=== PATIENT | male | born 1975 | race Caucasian/White ===

== ENCOUNTER 2016-04-21 14:02 | Emergency (ER) | payer SELFPAY ==
--- NOTE | 2016-04-21 14:19 | EDPRACDOC ---
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 POS LOC. C/O head, neck, back, right wrist, right knee, abdo pain, SOB. med hx = none. No blood thinners. Pain Severity: Reports: Moderate Injuries/Pain Location: Reports: head, face, neck, upper extremity (right), chest, abdomen, back, pelvis, lower extremity (right) Reason for Fall: Reports: other (railing gave way) Loss of Consciousness: unsure Modifying Factors: improves with: movement (worse) Associated Symptoms (Fall): Reports: abdominal pain, neck pain, shortness of breath Allergies/Adverse Reactions: Allergies No Known Allergies Allergy (Verified 04/21/16 14:35) Home Medications: Ambulatory Orders Diphenhydramine HCl [Benadryl Allergy] 25 mg PO BID 04/21/16 Ibuprofen Tablet [Motrin] 800 mg PO TID PRN #30 tab 04/21/16 Melatonin/Pyridoxine [Melatonin 5 mg Tablet] 1 tab PO QHS 04/21/16 ED Past Medical History - History Reviewed Yes Nurses notes reviewed and agree except as marked - Patient Medical History Psychological History: Denies: Depression Systemic History: Denies: Cancer - Social Medical History Smoking Status: Former smoker EDM Review of Systems - Review of Systems ROS Negative Except as Marked: Yes All systems reviewed and were negative except as marked Respiratory: Shortness of Breath Gastrointestinal: Pain Musculoskeletal: Arm (right), Ankle (right), Back (upper, lower,), Knee (right) , Leg (right), Neck, Pelvis Integumentary: Other (abrasions on right arm, hand, leg.) - Physical Exam Constitutional: Alert Oriented to: Time, Person, Place Last recorded Vital Signs: Last Vital Signs Temp 97.8 F 04/21/16 14:06 Pulse 68 04/21/16 14:06 Resp 18 04/21/16 14:06 BP 151/76 04/21/16 14:06 Pulse Ox 98 04/21/16 14:06 Oxygen Pulse Oxygen Saturation 98 O2 Device Room Air Oxygen Flow Rate Fraction of Inspired Oxygen ( FIO2) - HEENT Head: Normal Eye Exam: Normal ENT EAC: Normal TMJ: Normal Nose: No Symptoms Reported Neck: Normal - Respiratory/Cardiovascular Respiratory: Normal - CTA Cardiovascular: Normal - GI Tenderness: Diffuse, Moderate. negative: Guarding, Rebound, Rigidity - Musculoskeletal Extremities: Pedal Pulse, Radial Pulse - Integumentary Skin: Other (multiple abrasions on right arm, right leg) - Neurologic Mood Description: Normal Thought: Coherent ED Injury/Fall Exam - Physical Exam Head Injury: no evidence of injury Extremity Exam: other (abrasions right arm and leg) Skin: Normal Other Exam Findings: cap reflill, sensation, motor fxn and pulses intact on all extremities. - Woody Coma Score Best Eye Response ([place]): (4) open spontaneously Best Verbal Response ([place]): (5) oriented Best Motor Response ([place]y): (6) obeys commands [place] Total: 15 - Results 04/21/16 14:26 04/21/16 14:26 - Diagnostic Imaging Head Image interpreted by: Radiologist EXAM: CT HEAD WITHOUT CONTRAST CT CERVICAL SPINE WITHOUT CONTRAST TECHNIQUE: Multidetector CT imaging of the head and cervical spine was performed following the standard protocol without intravenous contrast. Multiplanar CT image reconstructions of the cervical spine were also generated. COMPARISON: None. FINDINGS: CT HEAD FINDINGS The brain demonstrates no evidence of hemorrhage, infarction, edema, mass effect, extra-axial fluid collection, hydrocephalus or mass lesion. No evidence of skull fracture. Mild mucosal thickening is present in bilateral ethmoid air cells. CT CERVICAL SPINE FINDINGS The cervical spine shows normal alignment. There is no evidence of acute fracture or subluxation. No soft tissue swelling or hematoma is identified. There are no significant degenerative changes. No bony or soft tissue lesions are seen. The visualized airway is normally patent. IMPRESSION: 1. No acute findings by head CT. Mild mucosal sinus disease in the ethmoid sinuses. 2. Normal cervical spine CT. Electronically Signed By: Lico Elaine M.D. On: 04/21/2016 15:23 Chest Image interpreted by: Radiologist EXAM: CT CHEST, ABDOMEN, AND PELVIS WITH CONTRAST TECHNIQUE: Multidetector CT imaging of the chest, abdomen and pelvis was performed following the standard protocol during bolus administration of intravenous contrast. CONTRAST: 100 cc Isovue 370 intravenous COMPARISON: None. FINDINGS: CT CHEST FINDINGS THORACIC INLET/BODY WALL: No acute abnormality. MEDIASTINUM: Normal heart size. No pericardial effusion. No acute vascular abnormality. No adenopathy. LUNG WINDOWS: No contusion, hemothorax, or pneumothorax. OSSEOUS: See below CT ABDOMEN AND PELVIS FINDINGS BODY WALL: Unremarkable. Hepatobiliary: No focal liver abnormality. Possible hepatic steatosis.No evidence of biliary obstruction or stone. Pancreas: Unremarkable. Spleen: Unremarkable. Adrenals/Urinary Tract: Negative adrenals. No evidence of renal injury. Unremarkable bladder. Reproductive:No pathologic findings. Stomach/Bowel: No evidence of injury. Appendectomy Vascular/Lymphatic: No acute vascular abnormality. No mass or adenopathy. Peritoneal: No ascites or pneumoperitoneum. Musculoskeletal: Remote and healed left clavicle fracture. Remote posterior left seventh rib fracture with hyper trophic healing. No evidence of acute fracture. IMPRESSION: No acute finding. Electronically Signed By: Juan Manuel Aguilar M.D. On: 04/21/2016 15:30 Knee Image interpreted by: Radiologist EXAM: RIGHT KNEE - COMPLETE 4+ VIEW COMPARISON: None. FINDINGS: There is no evidence of fracture, dislocation, or joint effusion. There is no evidence of arthropathy or other focal bone abnormality. Soft tissues are unremarkable. IMPRESSION: Negative. Electronically Signed By: Lico Elaine M.D. On: 04/21/2016 16:17 Wrist Image interpreted by: Radiologist EXAM: RIGHT WRIST - COMPLETE 3+ VIEW COMPARISON: None. FINDINGS: There is no evidence of fracture or dislocation. There is no evidence of arthropathy or other focal bone abnormality. Soft tissues are unremarkable. IMPRESSION: Negative. Electronically Signed By: Kris Shannon M.D. On: 04/21/2016 16:16 T-Spine Image interpreted by: Radiologist EXAM: THORACIC SPINE 2 VIEWS COMPARISON: None. FINDINGS: There is no evidence of thoracic spine fracture. Alignment is normal. No other significant bone abnormalities are identified. IMPRESSION: Negative. Electronically Signed By: Crispin Watson M.D. On: 04/21/2016 16:32 L-Spine Image interpreted by: Radiologist EXAM: LUMBAR SPINE - COMPLETE 4+ VIEW COMPARISON: CT scan same day FINDINGS: Five views of the lumbar spine submitted. No acute fracture or subluxation. Alignment and vertebral body heights are preserved. There is disc space flattening and vacuum disc phenomenon at L5-S1 level. Contrast material from recent CT scan noted bilateral renal collecting system bilateral ureter and urinary bladder. IMPRESSION: No acute fracture or subluxation. Disc space flattening and vacuum disc phenomenon at L5-S1 level. Electronically Signed By: Dennis Fontenot M.D. On: 04/21/2016 16:33 Decision Time to Discharge: 17:00 - Departure Disposition: Home Condition: Stable Final Diagnosis: Fall Qualifiers: Encounter type: initial encounter Qualified Code(s): W19.XXXA - Unspecified fall, initial encounter Instructions: RICE: Routine Care for Injuries, Fall Prevention (ED) Education/Counseling Given To: Patient Education/Counseling Given Regarding: Diagnosis, Treatment, Prognosis, Follow Up Referrals: None,No Provider [Primary Care Provider] - One Week Prescriptions: Ibuprofen Tablet [Motrin] 800 mg PO TID PRN #30 tab PRN Reason: Pain Additional Instructions: Follow up with primary care. Return to ED for any new or worsening symptoms.
[2016-04-21 14:24] VITALS: TEMP 97.8; BMI 30.3
[2016-04-21] MEDS ORDERED: MORPHINE 4 MG/ML INJECTION IV ONE (14:34)
[2016-04-21] MEDS ORDERED: ONDANSETRON HCL 4 MG/2 ML VIAL IV ONE (14:34)
[2016-04-21 14:39] LABS: AUTOMATED EOSINOPHIL 5.4 % (0-5); AUTOMATED MONOCYTE 6.8 % (3-10); AUTOMATED NEUTROPHIL 51.8 % (45-76)
[2016-04-21 14:51] LABS: BLOOD UREA NITROGEN 21 MG/DL (9-20); CALCIUM 9.5 MG/DL (8.4-10.2); CALCULATED OSMOLALITY 271 MOs/Kg (270-290); CHLORIDE 101 mEq/L (98-107); GLUCOSE 85 MG/DL (70-99); SODIUM LEVEL 140 mEq/L (137-146); TOTAL PROTEIN 7.8 G/DL (6.3-8.2)
[2016-04-21] MEDS ORDERED: Pharmacy Review for Metformin - IV Contrast Given SCH (15:00)
--- NOTE | 2016-04-21 15:26 | DIRPT ---
CLINICAL DATA: Fall through deck with loss of consciousness, headache and neck pain. Initial encounter. EXAM: CT HEAD WITHOUT CONTRAST CT CERVICAL SPINE WITHOUT CONTRAST TECHNIQUE: Multidetector CT imaging of the head and cervical spine was performed following the standard protocol without intravenous contrast. Multiplanar CT image reconstructions of the cervical spine were also generated. COMPARISON: None. FINDINGS: CT HEAD FINDINGS The brain demonstrates no evidence of hemorrhage, infarction, edema, mass effect, extra-axial fluid collection, hydrocephalus or mass lesion. No evidence of skull fracture. Mild mucosal thickening is present in bilateral ethmoid air cells. CT CERVICAL SPINE FINDINGS The cervical spine shows normal alignment. There is no evidence of acute fracture or subluxation. No soft tissue swelling or hematoma is identified. There are no significant degenerative changes. No bony or soft tissue lesions are seen. The visualized airway is normally patent. IMPRESSION: 1. No acute findings by head CT. Mild mucosal sinus disease in the ethmoid sinuses. 2. Normal cervical spine CT. Electronically Signed By: Lico Elaine M.D. On: 04/21/2016 15:23
--- NOTE | 2016-04-21 15:32 | DIRPT ---
CLINICAL DATA: Fall through deck with loss of consciousness. Initial encounter. EXAM: CT CHEST, ABDOMEN, AND PELVIS WITH CONTRAST TECHNIQUE: Multidetector CT imaging of the chest, abdomen and pelvis was performed following the standard protocol during bolus administration of intravenous contrast. CONTRAST: 100 cc Isovue 370 intravenous COMPARISON: None. FINDINGS: CT CHEST FINDINGS THORACIC INLET/BODY WALL: No acute abnormality. MEDIASTINUM: Normal heart size. No pericardial effusion. No acute vascular abnormality. No adenopathy. LUNG WINDOWS: No contusion, hemothorax, or pneumothorax. OSSEOUS: See below CT ABDOMEN AND PELVIS FINDINGS BODY WALL: Unremarkable. Hepatobiliary: No focal liver abnormality. Possible hepatic steatosis.No evidence of biliary obstruction or stone. Pancreas: Unremarkable. Spleen: Unremarkable. Adrenals/Urinary Tract: Negative adrenals. No evidence of renal injury. Unremarkable bladder. Reproductive:No pathologic findings. Stomach/Bowel: No evidence of injury. Appendectomy Vascular/Lymphatic: No acute vascular abnormality. No mass or adenopathy. Peritoneal: No ascites or pneumoperitoneum. Musculoskeletal: Remote and healed left clavicle fracture. Remote posterior left seventh rib fracture with hyper trophic healing. No evidence of acute fracture. IMPRESSION: No acute finding. Electronically Signed By: Juan Manuel Aguilar M.D. On: 04/21/2016 15:30
--- NOTE | 2016-04-21 16:19 | DIRPT ---
CLINICAL DATA: Fall from a deck today. Wrist pain. EXAM: RIGHT WRIST - COMPLETE 3+ VIEW COMPARISON: None. FINDINGS: There is no evidence of fracture or dislocation. There is no evidence of arthropathy or other focal bone abnormality. Soft tissues are unremarkable. IMPRESSION: Negative. Electronically Signed By: Kris Shannon M.D. On: 04/21/2016 16:16
--- NOTE | 2016-04-21 16:20 | DIRPT ---
CLINICAL DATA: Fall off neck today. Right knee pain. Initial encounter. EXAM: RIGHT KNEE - COMPLETE 4+ VIEW COMPARISON: None. FINDINGS: There is no evidence of fracture, dislocation, or joint effusion. There is no evidence of arthropathy or other focal bone abnormality. Soft tissues are unremarkable. IMPRESSION: Negative. Electronically Signed By: Lico Elaine M.D. On: 04/21/2016 16:17
--- NOTE | 2016-04-21 16:35 | DIRPT ---
CLINICAL DATA: 3-4 ft fall off a deck today. EXAM: THORACIC SPINE 2 VIEWS COMPARISON: None. FINDINGS: There is no evidence of thoracic spine fracture. Alignment is normal. No other significant bone abnormalities are identified. IMPRESSION: Negative. Electronically Signed By: Crispin Watson M.D. On: 04/21/2016 16:32
--- NOTE | 2016-04-21 16:36 | DIRPT ---
CLINICAL DATA: Fall about 3 feet today, neck pain, abdominal pain EXAM: LUMBAR SPINE - COMPLETE 4+ VIEW COMPARISON: CT scan same day FINDINGS: Five views of the lumbar spine submitted. No acute fracture or subluxation. Alignment and vertebral body heights are preserved. There is disc space flattening and vacuum disc phenomenon at L5-S1 level. Contrast material from recent CT scan noted bilateral renal collecting system bilateral ureter and urinary bladder. IMPRESSION: No acute fracture or subluxation. Disc space flattening and vacuum disc phenomenon at L5-S1 level. Electronically Signed By: Dennis Fontenot M.D. On: 04/21/2016 16:33
[2016-04-21 16:37] LABS: LEUKOCYTES/URINE NEG (NEGATIVE); NITRITE/URINE NEG (NEGATIVE); RBC/URINE 0-2 (0-2); URINE OCCULT BLOOD NEG (NEG/TRACE); WBC/URINE 0-2 (0-2)
[2016-04-21 17:33] VITALS: BP 117/65; PULSE 65
== END 2016-04-21 17:31 | disposition home or self-care (01) ==
LOC: ED 14:02
DX: R51 Headache (principal); M54.2 Cervicalgia; M54.9 Dorsalgia, unspecified; M25.561 Pain in right knee; M25.531 Pain in right wrist; W19.XXXA Unspecified fall, initial encounter; R10.9 Unspecified abdominal pain
CPT/HCPCS: 36415; 70450; 71260; 72070; 72110; 72125; 73110; 73564; 74177; 80053; 81001; 85025; 96374; 96375; 99285; A9698; J2270; J2405